=== PATIENT | male | born 1950 ===

== ENCOUNTER 2018-09-10 07:48 | Outpatient (CLI) | payer MEDICARE | END 2018-09-10 07:49 | disposition home or self-care (01) | LOC: C.USIC 07:49 | DX: K76.0 Fatty (change of) liver, not elsewhere classified (principal); K80.20 Calculus of gallbladder without cholecystitis without obstruction ==

== ENCOUNTER 2018-12-18 07:14 | Outpatient (CLI) | payer MEDICARE | END 2018-12-18 07:15 | disposition home or self-care (01) | LOC: C.LAB 07:14 ==

== ENCOUNTER 2018-12-20 09:27 | Outpatient (CLI) | payer MEDICARE | END 2018-12-20 09:28 | disposition home or self-care (01) | LOC: C.USIC 09:27 ==

== ENCOUNTER 2019-01-10 13:45 | Outpatient (CLI) | payer MEDICARE | END 2019-01-10 13:46 | disposition home or self-care (01) | LOC: C.PAT 13:45 | DX: R31.0 Gross hematuria (principal) ==

== ENCOUNTER 2019-01-14 09:46 | Day surgery (SDC) | payer MEDICARE ==
[2019-01-10 13:54] VITALS: BMI 30.5
[2019-01-14] MEDS ORDERED: Iohexol 240 (50 ml) ONE (11:07)
[2019-01-14] MEDS ORDERED: Ciprofloxacin 400mg/200ml D5W 400 MG/200 ML BAG IVPB ONE (11:07)
[2019-01-14] MEDS ORDERED: Lidocaine 2% Jelly (Uro-Jet) ONE (11:07)
[2019-01-14] MEDS ORDERED: Midazolam 2 MG/2 ML VIAL ONE (11:18)
[2019-01-14] MEDS ORDERED: Propofol 10 mg/ml Inj (20 ML) ONE ×2 (11:18→11:38)
[2019-01-14] MEDS ORDERED: HYDROmorphone 0.5 mg/0.5 ml ISec IVP PRN (12:03)
--- NOTE | 2019-01-14 12:09 | PCM.SURG1 ---
Surgeon's Initial Post Op Note - Surgeon's Notes Surgeon: gudelia Senior C Software Developer: none Type of Anesthesia: General IV Anesthesia Administered By: Pre-Operative Diagnosis: microhematuria 3+ Operative Findings: bph prostato-cystitis. Post-Operative Diagnosis: bph.prostato cystitis Operation Performed: ..cystoscopy bilateral retrograde pyelogram bladder biopsy with fulguration Specimen/Specimens Removed: urotthelial mucosa posterior bladder wall. Estimated Blood Loss: EBL {In ML}: 0 Blood Products Given: N/A Drains Used: No Drains Post-Op Condition: Good Date of Surgery/Procedure: 01/14/19 Time of Surgery/Procedure: 12:12
[2019-01-14] MEDS ORDERED: Lactated Ringer's 500 ML IV ONE (14:03)
[2019-01-14 14:31] VITALS: BP 151/76; PULSE 54; RESP 18; TEMP 97.7; O2SAT 99
--- NOTE | 2019-01-14 19:30 | RAD ---
Date of service: 01/14/2019 PROCEDURE: Bilateral retrograde studies HISTORY: HEMATURIA COMPARISON: None TECHNIQUE: Standard protocol for this study/examination. FINDINGS: [employer] Manager film demonstrates calculus at the level of the L4 vertebral body adjacent to the transverse process. Retrograde study confirms the presence of this calculus within the left ureter. The finding is marked on the study for review. Unremarkable left collecting system and ureter is visualized. Incidental finding(s): Intravasation of contrast documented in perinephric lymphatics. IMPRESSION: Proximal left ureteral calculus. No evidence of more proximal hydroureter or distention of the collecting system.
--- NOTE | 2019-01-15 02:59 | OP ---
PROCEDURE DATE: 01/14/2019 PREOPERATIVE DIAGNOSIS: Microscopic hematuria . POSTOPERATIVE DIAGNOSES: Benign prostatic hypertrophy, prostatocystitis. OPERATIONS: Cystoscopy, bilateral retrograde pyelogram, bladder biopsy, posterior wall with fulguration. SURGEON: Sebas Mancera MD FINDINGS: Good bladder capacity, moderate trabeculated bladder, no tumors or stones were observed during emptying and filling of the bladder, diffuse bleeding over the bladder epithelium on bladder distention. Ureteral orifices normally placed and in configuration, enlarged lateral lobes of the prostate gland meeting at the midline, moderate inflammation of the prostate gland noted, short prostatic urethra, membranous and pendulous urethra normal. TECHNIQUE: This patient was placed in lithotomy position. The external genitalia was prepped and draped in the usual sterile fashion. A #22 panendoscope was introduced in the bladder under direct vision. Finding as above. Using a #8 cone-tip ureteral catheter which was placed in the intramural portion of the left lower ureter, 8 mL of dye was injected into the left renal unit. X-rays were taken which showed no evidence of obstruction, space-occupying lesion, but a questionable abnormality in the left upper ureter. The right retrograde was performed again using a #8 cone-tip ureteral catheter, which was placed in intramural portion of the right lower ureter. An 8 mL of dye was injected. X-rays were taken, which showed no evidence of space-occupying lesion, ureteral obstruction, or intraluminal defect. After this was accomplished, a bladder biopsy was performed using biopsy forceps. Biopsy was performed at posterior bladder wall. The area was thoroughly fulgurated. No bleeding was present after the procedure. The patient returned to the recovery room in satisfactory condition. Sebas Mancera MD
== END 2019-01-14 14:32 | disposition home or self-care (01) ==
LOC: C.SDS 09:46
PROVIDERS: ATTEND Urology
DX: R31.0 Gross hematuria (principal); N40.0 Benign prostatic hyperplasia without lower urinary tract symptoms; N41.3 Prostatocystitis
CPT/HCPCS: 52204; 52351; 53899; 74420; 88305; C1758; J0744; J7120

== ENCOUNTER 2019-01-14 20:08 | Emergency (ER) | payer MEDICARE ==
[2019-01-14 20:09] VITALS: BMI 30.5
[2019-01-14 20:23] VITALS: RESP 20
--- NOTE | 2019-01-14 21:11 | C.PDOC ---
History Of Present Illness 68 year old male s/p bilateral pyelogram/bladder biopsy today presents with bladder pain radiating to the back since the procedure. 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 He reports some nausea during the pain and passing small clots. Denies urinary retention or abdominal pain. Time Seen by Provider: 01/14/19 20:44 Chief Complaint (Nursing): Abdominal Pain History Per: Patient History/Exam Limitations: no limitations Onset/Duration Of Symptoms: Days Current Symptoms Are (Timing): Still Present Quality Of Discomfort: Unable To Describe Associated Symptoms: Nausea, Other (Passing small clots) Alleviating Factors: None Recent travel outside of the [place]: No Past Medical History Reviewed: Historical Data, Nursing Documentation, Vital Signs Vital Signs: Last Vital Signs Temp 97.8 F 01/14/19 20:10 Pulse 61 01/14/19 20:10 Resp 20 01/14/19 20:10 BP 183/78 H 01/14/19 20:10 Pulse Ox 96 01/14/19 20:10 Primary Care Provider: Mitul Barrera - Medical History PMH: Surgical History: Endoscopy Family History: States: Unknown Family Hx - Social History Hx Alcohol Use: No Hx Substance Use: No - Immunization History Hx Tetanus Toxoid Vaccination: No Hx Influenza Vaccination: No Hx Pneumococcal Vaccination: No Review Of Systems Except As Marked, All Systems Reviewed And Found Negative. Gastrointestinal: Positive for: Nausea. Negative for: Abdominal Pain Genitourinary: Positive for: Other (Passing small clots, no retention) Physical Exam - Physical Exam Appears: Non-toxic, Other (Mild distress) Skin: Normal Color, Warm Head: Atraumatic, Normacephalic Eye(s): bilateral: Normal Inspection Oral Mucosa: Moist Chest: Symmetrical, No Tenderness Cardiovascular: Rhythm Regular Respiratory: Normal Breath Sounds, No Rales, No Rhonchi, No Wheezing Gastrointestinal/Abdominal: Soft, No Tenderness Back: No CVA Tenderness Neurological/Psych: Oriented x3, Normal Speech ED Course And Treatment O2 Sat by Pulse Oximetry: 96 (Room air) Pulse Ox Interpretation: Normal Progress - Re-Evaluation Re-evaluation Note: 01/14/19 22:15 BLADDER SCAN post void 250 cc 01/14/19 22:18 D/W DR MANCERA ADVISES MARTHA SANCHES FU OFFICE TOMORROW - Data Reviewed Data Reviewed: Lab, Old records Medical Decision Making Medical Decision Making: Plan: * UA * Bladder scan * Morphine * Tylenol * Zofran Disposition Counseled Patient/Family Regarding: Studies Performed, Diagnosis, Need For Followup - Disposition Referrals: Sebas Mancera Sr., MD [Staff Provider] - Disposition: HOME/ ROUTINE Disposition Time: 22:24 Condition: IMPROVED Additional Instructions: FOLLOW UP DR MANCERA OFFICE 01/15 AFTER 1 PM. CONTINUE MEDICATIONS PRESCRIBED. Instructions: Urinary Retention (DC), How to Care for Your Sanches Catheter, Male Forms: [employer] (Chinese) Print Language: ARABIC - Clinical Impression Clinical Impression: Urinary retention - Scribe Statement The provider has reviewed the documentation as recorded by the Scribsanjuanita Thomas All medical record entries made by the Scribe were at my direction and personally dictated by me. I have reviewed the chart and agree that the record accurately reflects my personal performance of the history, physical exam, medical decision making, and the department course for this patient. I have also personally directed, reviewed, and agree with the discharge instructions and disposition.
[2019-01-14 22:00] LABS: URINE BACTERIA RARE (<OCC); URINE BILIRUBIN NEGATIVE (NEGATIVE); URINE BLOOD 3+ (NEGATIVE); URINE CLARITY Hazy (Clear); URINE COLOR Yellow (YELLOW); URINE GLUCOSE (UA) NORMAL (Normal); URINE LEUKOCYTE ESTERASE NEG Leu/uL (Negative); URINE PROTEIN 1+ mg/dL (NEGATIVE); URINE UROBILINOGEN NORMAL mg/dL (0.2-1.0)
[2019-01-14 23:10] VITALS: BP 146/70; PULSE 64; TEMP 98.1; O2SAT 95
== END 2019-01-14 23:09 | disposition home or self-care (01) ==
LOC: C.ER 20:08
DX: R33.9 Retention of urine, unspecified (principal)
CPT/HCPCS: 81001; 96374; 96375; 99285; J2270; J2405